=== PATIENT | female | born 1990 | race Caucasian/White ===

== ENCOUNTER 2018-11-06 13:06 | Inpatient (IN) | payer MEDICAID ==
[2018-11-06] MEDS ORDERED: Citric Acid/Sodium Citrate Solution 30 ML Cup PO ONE (13:34)
[2018-11-06] MEDS ORDERED: Sodium Chloride 0.9% 10 ML Syringe FLUSH PRN (13:34)
[2018-11-06] MEDS ORDERED: Nalbuphine 20 MG/ML 1 ML Syringe IVPUSH PRN (13:34)
[2018-11-06] MEDS ORDERED: Metoclopramide 10 MG/2 ML SDV IVPUSH ONE (13:34)
[2018-11-06] MEDS ORDERED: Metoclopramide 10 MG/2 ML SDV ONE (13:35)
[2018-11-06] MEDS ORDERED: Lactated Ringers 1,000 ML ONE (13:35)
[2018-11-06] MEDS ORDERED: Citric Acid/Sodium Citrate Solution 30 ML Cup ONE (13:36)
[2018-11-06] MEDS ORDERED: Lactated Ringers 1,000 ML IV SCH (13:45)
[2018-11-06] MEDS ORDERED: Bupivacaine 0.5% 30 ML SDV ONE (13:57)
[2018-11-06] MEDS ORDERED: ceFAZolin 1 GM Vial ONE (14:00)
[2018-11-06] MEDS ORDERED: Succinylcholine/Normal Saline 100 MG/5 ML Syringe ONE (14:00)
[2018-11-06] MEDS ORDERED: Oxytocin 10 Units/1 ML SDV ONE (14:00)
[2018-11-06] MEDS ORDERED: Ketorolac 30 MG/ML SDV ONE (14:00)
[2018-11-06] MEDS ORDERED: Propofol 200 MG/20 ML SDV ONE (14:00)
[2018-11-06] MEDS ORDERED: fentaNYL 100 MCG/2 ML SDV ONE (14:00)
[2018-11-06] MEDS: fentaNYL 100 MCG/2 ML SDV IVPUSH ONE ×2 (14:53→15:20)
--- NOTE | 2018-11-06 15:10 | PCM.OPNOTE ---
- General Post-Op/Procedure Note Date of Surgery/Procedure: 11/06/18 Operative Procedure(s): primary section Findings: Viable male, weight and apgars pending Pre Op Diagnosis: Abruption, 26w2 Post-Op Diagnosis: Same Anesthesia Technique: General ET Tube Primary Surgeon: Jasmine Fallon Anesthesia Provider: Wilfredo Mike Athletics Director: Radha Butterfield Reason Athletics Director Was Necessary: stat, emergency procedure, speed of procedure needed Fluid Replacement, Intraop: 1,400 Output, Urine Amount: 25 EBL in mLs: 500 Complications: abruption Condition: Good Free Text/Narrative:: The patient was taken to the operating room where general was initiated. The patient was prepped and draped in the usual sterile fashion in the dorsal supine position with a leftward tilt. A Pfannenstiel skin incision was made with the scalpel and carried through to the underlying layer of fascia. Fascia, rectus and peritoneum entered bluntly this incision was extended superiorly and inferiorly with good visualization of the bladder. The bladder blade was inserted. The vesicouterine peritoneum was identified and entered sharply using Metzenbaum scissors. This incision was extended laterally and the bladder flap was created digitally. The bladder blade was reinserted. The lower uterine segment was incised in a transverse fashion using the scalpel and with digital traction. Copious blood and clot noted upon entry to uterus. The was delivered breech. . The cord was clamped and cut. The was subsequently handed to the awaiting harpoon engagement planning operator whose presence had been requested.. The placenta was delivered spontaneously intact with a three-vessel cord noted. The uterus was exteriorized and cleared of all clots and debris. The uterine incision was repaired in 2 layers using 0 monocryl. Additional figure of 8 sutures utilized. Hemostasis was visualized. Hemostasis was visualized bilaterally. The uterus was returned to the abdomen. The uterine incision was reexamined and it was noted to be hemostatic. The pelvis was copiously irrigated. The fascia was closed with 1 PDS suture, and the skin was closed with 3-0 monocryl. Sponge, lap, and instrument counts were correct x2. The patient was stable at the completion of the procedure and was subsequently transferred to the recovery room in stable condition.
--- NOTE | 2018-11-06 15:16 | PCM.HP ---
H&P History of Present Illness - General Date of Service: 11/06/18 Admit Problem/Dx: Admission Diagnosis/Problem Admission Diagnosis/Problem Bleeding Source of Information: Patient, EMS, EMS Notes Reviewed, Police History Limitations: Reports: Altered Mental Status - History of Present Illness Initial Comments - Free Text/Narative: 28 year old presents via ambulance with police escort after police in her home today for routine probation search of the home and the patient began having copious vaginal bleeding. Initially admitted to recent methamphetamine use but then stated only used marijuana and "maybe it was laced with meth" 26w2d with care with myself complicated by history of delivery. - Related Data Allergies/Adverse Reactions: Allergies Allergy/AdvReac Type Severity Reaction Status Date / Time antibiotic. Allergy Hives Uncoded 02/04/16 00:13 Home Medications: Home Meds Sertraline [Zoloft] 1 tab PO DAILY 06/22/16 [History] Past Medical History - Past Health History Medical/Surgical History: Denies Medical/Surgical History Other HEENT History: Wears contacts. 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) - Past Surgical History Female Surgical History: Reports: Other (See Below) Social & Family History - Family History Family Medical History: Noncontributory H&P Review of Systems - Review of Systems: Review Of Systems: See Below General: Reports: No Symptoms HEENT: Reports: No Symptoms Pulmonary: Reports: No Symptoms Cardiovascular: Reports: No Symptoms Gastrointestinal: Reports: No Symptoms Genitourinary: Reports: Other (heavy vaginal bleeding) Musculoskeletal: Reports: No Symptoms Skin: Reports: No Symptoms Psychiatric: Reports: No Symptoms Neurological: Reports: No Symptoms Hematologic/Lymphatic: Reports: No Symptoms Immunologic: Reports: No Symptoms Exam - Exam Exam: See Below - Vital Signs Weight: 75.296 kg - Exam General: Alert, Other (agitated) HEENT: PERRLA, Hearing Intact, Mucosa Moist & [place], Nares Patent, Normal Nasal Septum, Posterior Pharynx Clear, Conjunctiva Clear, EOMI, EACs Clear, TMs Clear Lungs: Clear to Auscultation, Normal Respiratory Effort Cardiovascular: Regular Rate, Regular Rhythm GI/Abdominal Exam: Normal Bowel Sounds, Soft, Non-Tender, No Organomegaly, No Distention, No Abnormal Bruit, No Mass, Pelvis Stable (Female) Exam: Normal External Exam, Vaginal Bleeding, Other (speculum exam with copious vaginal bleeding) Rectal (Female) Exam: Normal Exam Back Exam: Normal Inspection, Full Range of Motion, NT Extremities: Normal Inspection, Normal Range of Motion, No Pedal Edema Skin: Warm, Dry, Intact Neurological: Cranial Nerves Intact, Reflexes Equal Bilateral Neuro Extensive - Mental Status: Alert, Oriented x3 Neuro Extensive - Motor, Sensory, Reflexes: CN II-XII Intact, Normal Reflexes Psychiatric: Alert, Normal Affect, Normal Mood - Patient Data Lab Results Last 24 hrs: Laboratory Results - last 24 hr 11/06/18 11/06/18 11/06/18 Range/Units 13:25 13:25 13:25 WBC 12.54 H (3.98-10.04) K/mm3 RBC 4.12 (3.98-5.22) M/mm3 Hgb 12.0 (11.2-15.7) gm/L Hct 36.5 (34.1-44.9) % MCV 88.6 (79.4-94.8) fl MCH 29.1 (25.6-32.2) pg MCHC 32.9 (32.2-35.5) g/dl RDW Std Deviation 42.6 (36.4-46.3) fL Plt Count 336 (182-369) K/mm3 MPV 10.5 (9.4-12.3) fl Neut % (Auto) 70.9 (34.0-71.1) % Lymph % (Auto) 19.1 L (19.3-51.7) % Sherman % (Auto) 8.5 (4.7-12.5) % Eos % (Auto) 0.6 L (0.7-5.8) Baso % (Auto) 0.3 (0.1-1.2) % Neut # (Auto) 8.90 H (1.56-6.13) K/mm3 Lymph # (Auto) 2.40 (1.18-3.74) K/mm3 Sherman # (Auto) 1.06 H (0.24-0.36) K/mm3 Eos # (Auto) 0.07 (0.04-0.36) K/mm3 Baso # (Auto) 0.04 (0.01-0.08) K/mm3 PT 9.6 (9.5-12.1) SECONDS INR < 0.93 APTT 24 (24-31) SECONDS Fibrinogen 340 (187-446) mg/dL Sodium 139 (136-145) mEq/L Potassium 3.7 (3.5-5.1) mEq/L Chloride 105 (98-107) mEq/L Carbon Dioxide 24 (21-32) mEq/L Anion Gap 13.7 (5-15) BUN 10 (7-18) mg/dL Creatinine 0.7 (0.55-1.02) mg/dL Est Cr Clr Drug Dosing 94.63 mL/min Estimated GFR (MDRD) > 60 (>60) mL/min BUN/Creatinine Ratio 14.3 (14-18) Glucose 78 (74-106) mg/dL Calcium 8.5 (8.5-10.1) mg/dL Total Bilirubin 0.2 (0.2-1.0) mg/dL AST 21 (15-37) U/L ALT 19 (14-59) U/L Alkaline Phosphatase 75 (46-116) U/L Total Protein 6.1 L (6.4-8.2) g/dl Albumin 2.3 L (3.4-5.0) g/dl Globulin 3.8 gm/dL Albumin/Globulin Ratio 0.6 L (1-2) Urine Opiates Screen (SHCWVK=064) Ur Buprenorphine Scrn (CUTOFF=10) Ur Oxycodone Screen (OLR2JV=325) Urine Methadone Screen (IKBQUF=001) Ur Propoxyphene Screen (QLJUSY=583) Ur Barbiturates Screen (RZZYOB=037) Ur Tricyclics Screen (IUEGOI=003) Ur Phencyclidine Scrn (CUTOFF=25) Ur Amphetamine Screen (EVESPY=089) U Methamphetamines Scrn (SPVBET=364) U Benzodiazepines Scrn (XQYIGJ=072) U Cocaine Metab Screen (HSQQAJ=995) U Marijuana (THC) Screen (CUTOFF=50) Blood Type Gel Antibody Screen 11/06/18 11/06/18 Range/Units 13:25 13:37 WBC (3.98-10.04) K/mm3 RBC (3.98-5.22) M/mm3 Hgb (11.2-15.7) gm/L Hct (34.1-44.9) % MCV (79.4-94.8) fl MCH (25.6-32.2) pg MCHC (32.2-35.5) g/dl RDW Std Deviation (36.4-46.3) fL Plt Count (182-369) K/mm3 MPV (9.4-12.3) fl Neut % (Auto) (34.0-71.1) % Lymph % (Auto) (19.3-51.7) % Sherman % (Auto) (4.7-12.5) % Eos % (Auto) (0.7-5.8) Baso % (Auto) (0.1-1.2) % Neut # (Auto) (1.56-6.13) K/mm3 Lymph # (Auto) (1.18-3.74) K/mm3 Sherman # (Auto) (0.24-0.36) K/mm3 Eos # (Auto) (0.04-0.36) K/mm3 Baso # (Auto) (0.01-0.08) K/mm3 PT (9.5-12.1) SECONDS INR APTT (24-31) SECONDS Fibrinogen (187-446) mg/dL Sodium (136-145) mEq/L Potassium (3.5-5.1) mEq/L Chloride (98-107) mEq/L Carbon Dioxide (21-32) mEq/L Anion Gap (5-15) BUN (7-18) mg/dL Creatinine (0.55-1.02) mg/dL Est Cr Clr Drug Dosing mL/min Estimated GFR (MDRD) (>60) mL/min BUN/Creatinine Ratio (14-18) Glucose (74-106) mg/dL Calcium (8.5-10.1) mg/dL Total Bilirubin (0.2-1.0) mg/dL AST (15-37) U/L ALT (14-59) U/L Alkaline Phosphatase (46-116) U/L Total Protein (6.4-8.2) g/dl Albumin (3.4-5.0) g/dl Globulin gm/dL Albumin/Globulin Ratio (1-2) Urine Opiates Screen Negative (LFBLRR=380) Ur Buprenorphine Scrn Negative (CUTOFF=10) Ur Oxycodone Screen Negative (WGH7YJ=867) Urine Methadone Screen Negative (QKKFKD=249) Ur Propoxyphene Screen Negative (MIHTLM=824) Ur Barbiturates Screen Negative (BOQDWB=113) Ur Tricyclics Screen Negative (YWLFNB=321) Ur Phencyclidine Scrn Negative (CUTOFF=25) Ur Amphetamine Screen Presumptive positive H (RWNUTX=916) U Methamphetamines Scrn Presumptive positive H (DYVAWV=126) U Benzodiazepines Scrn Negative (MLABSQ=636) U Cocaine Metab Screen Negative (BMOUWL=338) U Marijuana (THC) Screen Presumptive positive H (CUTOFF=50) Blood Type O POSITIVE Gel Antibody Screen Negative Result Diagrams: 11/06/18 13:25 11/06/18 13:25 Problem List Initiated/Reviewed/Updated: Yes Orders Last 24hrs: Active Orders 24 hr Category Date Time Status Patient Status [ADT] Routine ADT 11/06/18 13:34 Active Communication Order [RC] ROUTINE Care 11/06/18 13:34 Active Heart Tones [RC] PER UNIT ROUTINE Care 11/06/18 13:34 Active Non Stress Test [RC] PER UNIT ROUTINE Care 11/06/18 13:34 Active Peripheral IV Care [RC] . DIRECTED Care 11/06/18 13:35 Active Procedure Site Prep Instruct [RC] ASDIRECTED Care 11/06/18 13:34 Active Verify Patient Consent Obtain [RC] PER UNIT ROUTINE Care 11/06/18 13:34 Active Vital Signs [RC] PFP Care 11/06/18 13:34 Active RAPID PLASMA REAGIN,RPR [CHEM] Routine Lab 11/06/18 13:25 Received Lactated Ringers [Ringers, Lactated] 1,000 ml Med 11/06/18 13:45 Active IV ASDIRECTED Nalbuphine [Nubain] Med 11/06/18 13:34 Active 10 mg IVPUSH Q2H PRN Sodium Chloride 0.9% [Saline Flush] Med 11/06/18 13:34 Active 10 ml FLUSH ASDIRECTED PRN Peripheral IV Insertion Adult [OM.PC] Routine Oth 11/06/18 13:34 Ordered Schedule Procedure [COMM] Per Unit Routine Oth 11/06/18 13:34 Ordered Resuscitation Status Routine Resus Stat 11/06/18 13:34 Ordered Medication Orders Lactated Ringer's (Ringers, Lactated) 1,000 mls @ 125 mls/hr IV ASDIRECTED HANNY Nalbuphine HCl (Nubain) 10 mg IVPUSH Q2H PRN PRN Reason: pain Sodium Chloride (Saline Flush) 10 ml FLUSH ASDIRECTED PRN PRN Reason: Keep Vein Open Assessment/Plan Comment:: Placental abruption in setting of likely recent methamphetamine use. Proceed with stat Note done after due to emergent nature.
[2018-11-06] MEDS ORDERED: diphenhydrAMINE 50 MG/ML SDV IVPUSH PRN (17:40)
[2018-11-06] MEDS ORDERED: Dextrose 5%-Lactated Ringers 1,000 ML IV SCH (17:40)
[2018-11-06] MEDS ORDERED: Naloxone 0.4 MG/ML SDV IVPUSH PRN (17:40)
[2018-11-06] MEDS ORDERED: Lanolin 100% Cream 7 GM Tube TOP PRN (17:40)
[2018-11-06] MEDS ORDERED: ePHEDrine 50 MG/ML SDV IVPUSH PRN (17:40)
[2018-11-06] MEDS ORDERED: Docusate Sodium 100 MG Cap PO PRN (17:40)
[2018-11-06] MEDS: Ketorolac 30 MG/ML SDV IVPUSH SCH ×2 (18:41→23:48)
[2018-11-07] MEDS ORDERED: Sodium Chloride 0.45% 500 ML IV ONE (01:30)
[2018-11-07] MEDS ORDERED: Sodium Chloride 0.9% 500 ML IV ONE (01:45)
[2018-11-07] MEDS ORDERED: Sodium Chloride 0.45% 1,000 ML IV SCH (02:30)
[2018-11-07] MEDS ORDERED: Sodium Chloride 0.9% 1,000 ML IV SCH (02:45)
[2018-11-07] MEDS: Ketorolac 30 MG/ML SDV IVPUSH SCH (06:14)
--- NOTE | 2018-11-07 07:46 | PCM48HPAN ---
Post Anesthesia Note - EVALUATION WITHIN 48HRS OF ANESTHETIC Vital Signs in Normal Range: Yes Patient Participated in Evaluation: Yes Respiratory Function Stable: Yes Airway Patent: Yes Cardiovascular Function Stable: Yes Hydration Status Stable: Yes Pain Control Satisfactory: Yes Nausea and Vomiting Control Satisfactory: Yes Mental Status Recovered: Yes (resting in bed- no complaints) Pulse Rate: 80 Resp Rate: 14 Temperature: 98.2 F Blood Pressure: 137/88
[2018-11-07] MEDS: Acetaminophen/HYDROcodone 325-5 MG Tab PO PRN ×3 (10:08→22:09)
--- NOTE | 2018-11-07 10:40 | PCM.PNPP ---
- General Info Date of Service: 11/07/18 Functional Status: Reports: Pain Controlled - Review of Systems General: Reports: No Symptoms HEENT: Reports: No Symptoms Pulmonary: Reports: No Symptoms Cardiovascular: Reports: No Symptoms Gastrointestinal: Reports: No Symptoms Genitourinary: Reports: No Symptoms Musculoskeletal: Reports: No Symptoms Skin: Reports: No Symptoms Neurological: Reports: No Symptoms Psychiatric: Reports: No Symptoms - General Info Date of Service: 11/07/18 - Patient Data Vital Signs - Most Recent: Last Vital Signs Temp 36.6 C 11/07/18 09:18 Pulse 78 11/07/18 09:18 Resp 14 11/07/18 09:18 BP 123/75 11/07/18 09:18 Pulse Ox 94 L 11/07/18 09:18 Weight - Most Recent: 86.183 kg I&O - Last 24 Hours: Intake & Output 11/06/18 11/07/18 11/07/18 22:59 06:59 14:59 Intake Total 1550 2000 Output Total 75 1200 Balance 1475 800 Lab Results - Last 24 Hours: Laboratory Results - last 24 hr 11/06/18 11/06/18 11/06/18 Range/Units 13:25 13:25 13:25 WBC 12.54 H (3.98-10.04) K/mm3 RBC 4.12 (3.98-5.22) M/mm3 Hgb 12.0 (11.2-15.7) gm/L Hct 36.5 (34.1-44.9) % MCV 88.6 (79.4-94.8) fl MCH 29.1 (25.6-32.2) pg MCHC 32.9 (32.2-35.5) g/dl RDW Std Deviation 42.6 (36.4-46.3) fL Plt Count 336 (182-369) K/mm3 MPV 10.5 (9.4-12.3) fl Neut % (Auto) 70.9 (34.0-71.1) % Lymph % (Auto) 19.1 L (19.3-51.7) % [place] % (Auto) 8.5 (4.7-12.5) % Eos % (Auto) 0.6 L (0.7-5.8) Baso % (Auto) 0.3 (0.1-1.2) % Neut # (Auto) 8.90 H (1.56-6.13) K/mm3 Lymph # (Auto) 2.40 (1.18-3.74) K/mm3 [place] # (Auto) 1.06 H (0.24-0.36) K/mm3 Eos # (Auto) 0.07 (0.04-0.36) K/mm3 Baso # (Auto) 0.04 (0.01-0.08) K/mm3 Manual Slide Review PT 9.6 (9.5-12.1) SECONDS INR < 0.93 APTT 24 (24-31) SECONDS Fibrinogen 340 (187-446) mg/dL Sodium 139 (136-145) mEq/L Potassium 3.7 (3.5-5.1) mEq/L Chloride 105 (98-107) mEq/L Carbon Dioxide 24 (21-32) mEq/L Anion Gap 13.7 (5-15) BUN 10 (7-18) mg/dL Creatinine 0.7 (0.55-1.02) mg/dL Est Cr Clr Drug Dosing 94.63 mL/min Estimated GFR (MDRD) > 60 (>60) mL/min BUN/Creatinine Ratio 14.3 (14-18) Glucose 78 (74-106) mg/dL POC Glucose (70-105) mg/dL Calcium 8.5 (8.5-10.1) mg/dL Total Bilirubin 0.2 (0.2-1.0) mg/dL AST 21 (15-37) U/L ALT 19 (14-59) U/L Alkaline Phosphatase 75 (46-116) U/L Total Protein 6.1 L (6.4-8.2) g/dl Albumin 2.3 L (3.4-5.0) g/dl Globulin 3.8 gm/dL Albumin/Globulin Ratio 0.6 L (1-2) Urine Opiates Screen (GQAIIT=554) Ur Buprenorphine Scrn (CUTOFF=10) Ur Oxycodone Screen (AQY2AU=412) Urine Methadone Screen (RBIRJL=999) Ur Propoxyphene Screen (TAMYFP=178) Ur Barbiturates Screen (ZREPZN=797) Ur Tricyclics Screen (IXVURZ=095) Ur Phencyclidine Scrn (CUTOFF=25) Ur Amphetamine Screen (MUKGFF=579) U Methamphetamines Scrn (CUOKSL=089) U Benzodiazepines Scrn (IFGRCY=454) U Cocaine Metab Screen (OVCEGB=308) U Marijuana (THC) Screen (CUTOFF=50) Blood Type Gel Antibody Screen 11/06/18 11/06/18 11/06/18 Range/Units 13:25 13:37 15:33 WBC (3.98-10.04) K/mm3 RBC (3.98-5.22) M/mm3 Hgb (11.2-15.7) gm/L Hct (34.1-44.9) % MCV (79.4-94.8) fl MCH (25.6-32.2) pg MCHC (32.2-35.5) g/dl RDW Std Deviation (36.4-46.3) fL Plt Count (182-369) K/mm3 MPV (9.4-12.3) fl Neut % (Auto) (34.0-71.1) % Lymph % (Auto) (19.3-51.7) % [place] % (Auto) (4.7-12.5) % Eos % (Auto) (0.7-5.8) Baso % (Auto) (0.1-1.2) % Neut # (Auto) (1.56-6.13) K/mm3 Lymph # (Auto) (1.18-3.74) K/mm3 [place] # (Auto) (0.24-0.36) K/mm3 Eos # (Auto) (0.04-0.36) K/mm3 Baso # (Auto) (0.01-0.08) K/mm3 Manual Slide Review PT (9.5-12.1) SECONDS INR APTT (24-31) SECONDS Fibrinogen (187-446) mg/dL Sodium (136-145) mEq/L Potassium (3.5-5.1) mEq/L Chloride (98-107) mEq/L Carbon Dioxide (21-32) mEq/L Anion Gap (5-15) BUN (7-18) mg/dL Creatinine (0.55-1.02) mg/dL Est Cr Clr Drug Dosing mL/min Estimated GFR (MDRD) (>60) mL/min BUN/Creatinine Ratio (14-18) Glucose (74-106) mg/dL POC Glucose 282 H (70-105) mg/dL Calcium (8.5-10.1) mg/dL Total Bilirubin (0.2-1.0) mg/dL AST (15-37) U/L ALT (14-59) U/L Alkaline Phosphatase (46-116) U/L Total Protein (6.4-8.2) g/dl Albumin (3.4-5.0) g/dl Globulin gm/dL Albumin/Globulin Ratio (1-2) Urine Opiates Screen Negative (PAYRBX=009) Ur Buprenorphine Scrn Negative (CUTOFF=10) Ur Oxycodone Screen Negative (NIZ6QZ=596) Urine Methadone Screen Negative (NUIRCA=409) Ur Propoxyphene Screen Negative (CLRWVS=903) Ur Barbiturates Screen Negative (GMVUUZ=295) Ur Tricyclics Screen Negative (AZCMCM=751) Ur Phencyclidine Scrn Negative (CUTOFF=25) Ur Amphetamine Screen Presumptive positive H (YKQRGV=759) U Methamphetamines Scrn Presumptive positive H (HDNQBS=116) U Benzodiazepines Scrn Negative (SMLWCY=420) U Cocaine Metab Screen Negative (ICIWTY=741) U Marijuana (THC) Screen Presumptive positive H (CUTOFF=50) Blood Type O POSITIVE Gel Antibody Screen Negative 11/07/18 Range/Units 06:00 WBC 11.68 H (3.98-10.04) K/mm3 RBC 3.26 L (3.98-5.22) M/mm3 Hgb 9.4 L D (11.2-15.7) gm/L Hct 29.3 L (34.1-44.9) % MCV 89.9 (79.4-94.8) fl MCH 28.8 (25.6-32.2) pg MCHC 32.1 L (32.2-35.5) g/dl RDW Std Deviation 42.8 (36.4-46.3) fL Plt Count 262 (182-369) K/mm3 MPV 10.2 (9.4-12.3) fl Neut % (Auto) 65.8 (34.0-71.1) % Lymph % (Auto) 18.9 L (19.3-51.7) % [place] % (Auto) 13.1 H (4.7-12.5) % Eos % (Auto) 1.6 (0.7-5.8) Baso % (Auto) 0.2 (0.1-1.2) % Neut # (Auto) 7.68 H (1.56-6.13) K/mm3 Lymph # (Auto) 2.21 (1.18-3.74) K/mm3 [place] # (Auto) 1.53 H (0.24-0.36) K/mm3 Eos # (Auto) 0.19 (0.04-0.36) K/mm3 Baso # (Auto) 0.02 (0.01-0.08) K/mm3 Manual Slide Review Abnormal smear PT (9.5-12.1) SECONDS INR APTT (24-31) SECONDS Fibrinogen (187-446) mg/dL Sodium (136-145) mEq/L Potassium (3.5-5.1) mEq/L Chloride (98-107) mEq/L Carbon Dioxide (21-32) mEq/L Anion Gap (5-15) BUN (7-18) mg/dL Creatinine (0.55-1.02) mg/dL Est Cr Clr Drug Dosing mL/min Estimated GFR (MDRD) (>60) mL/min BUN/Creatinine Ratio (14-18) Glucose (74-106) mg/dL POC Glucose (70-105) mg/dL Calcium (8.5-10.1) mg/dL Total Bilirubin (0.2-1.0) mg/dL AST (15-37) U/L ALT (14-59) U/L Alkaline Phosphatase (46-116) U/L Total Protein (6.4-8.2) g/dl Albumin (3.4-5.0) g/dl Globulin gm/dL Albumin/Globulin Ratio (1-2) Urine Opiates Screen (GFOAMX=244) Ur Buprenorphine Scrn (CUTOFF=10) Ur Oxycodone Screen (NRG0PP=102) Urine Methadone Screen (OTKXLY=275) Ur Propoxyphene Screen (IBVWSD=332) Ur Barbiturates Screen (LHZMUA=366) Ur Tricyclics Screen (OANUJN=120) Ur Phencyclidine Scrn (CUTOFF=25) Ur Amphetamine Screen (IELNTJ=694) U Methamphetamines Scrn (NMVZQV=577) U Benzodiazepines Scrn (WNSCIB=462) U Cocaine Metab Screen (UACSCA=941) U Marijuana (THC) Screen (CUTOFF=50) Blood Type Gel Antibody Screen Med Orders - Current: Current Medications Hydrocodone Bitart/Acetaminophen (Malcom 325-5 Mg) 2 tab PO Q4H PRN PRN Reason: Pain Last Admin: 11/07/18 10:08 Dose: 2 tab Diphenhydramine HCl (Benadryl) 25 mg IVPUSH Q6H PRN PRN Reason: Itching or Nausea Docusate Sodium (Colace) 100 mg PO Q12H PRN PRN Reason: Constipation Emollient Ointment (Lansinoh Hpa) 0 gm TOP ASDIRECTED PRN PRN Reason: Sore Nipples Ephedrine Sulfate (Ephedrine Sulfate) 5 mg IVPUSH SEECOMMENT PRN PRN Reason: Other Sodium Chloride (Normal Saline) 1,000 mls @ 125 mls/hr IV ASDIRECTED HANNY Ibuprofen (Motrin) 600 mg PO Q6H PRN PRN Reason: mild pain or fever Naloxone HCl (Narcan) 0.1 mg IVPUSH SEECOMMENT PRN PRN Reason: Respiratory Depression Discontinued Medications Bupivacaine HCl (Marcaine 0.5%) Confirm Administered Dose 30 ml .ROUTE .STK-MED ONE Stop: 11/06/18 13:58 Last Admin: 11/06/18 13:48 Dose: 20 ml Cefazolin Sodium (Ancef) 2 gm .ROUTE .STK-MED ONE Stop: 11/06/18 14:01 Citric Acid/Sodium Citrate (Bicitra Solution) Confirm Administered Dose 30 ml .ROUTE .STK-MED ONE Stop: 11/06/18 13:37 Last Admin: 11/06/18 13:40 Dose: 30 ml Citric Acid/Sodium Citrate (Bicitra Solution) 30 ml PO ONETIME ONE Stop: 11/06/18 13:35 Fentanyl (Sublimaze) 50 mcg IVPUSH ONETIME ONE Stop: 11/06/18 15:26 Last Admin: 11/06/18 15:20 Dose: 50 mcg Fentanyl (Sublimaze) 200 mcg .ROUTE .STK-MED ONE Stop: 11/06/18 14:01 Lactated Ringer's (Ringers, Lactated) Confirm Administered Dose 1,000 mls @ as directed .ROUTE .STK-MED ONE Stop: 11/06/18 13:36 Lactated Ringer's (Ringers, Lactated) 1,000 mls @ 125 mls/hr IV ASDIRECTED [facility] Dextrose/Lactated Ringer's (Dextrose 5%-Lactated Ringers) 1,000 mls @ 125 mls/ hr IV ASDIRECTED HANNY Stop: 11/07/18 01:39 Last Admin: 11/06/18 20:42 Dose: 125 mls/hr Sodium Chloride (Normal Saline) 500 mls @ 500 mls/hr IV ONETIME ONE Stop: 11/07/18 02:44 Last Infusion: 11/07/18 03:17 Dose: Infused Ketorolac Tromethamine (Toradol) 30 mg IVPUSH Q6H [facility] Stop: 11/07/18 05:41 Last Admin: 11/07/18 06:14 Dose: 30 mg Ketorolac Tromethamine (Toradol) 30 mg .ROUTE .STK-MED ONE Stop: 11/06/18 14:01 Lactated Ringer's (Ringers, Lactated) 1,000 ml .ROUTE .STK-MED ONE Stop: 11/06/18 14:01 Metoclopramide HCl (Reglan) Confirm Administered Dose 10 mg .ROUTE .STK-MED ONE Stop: 11/06/18 13:36 Last Admin: 11/06/18 13:45 Dose: 10 mg Metoclopramide HCl (Reglan) 10 mg IVPUSH ONETIME ONE Stop: 11/06/18 13:35 Nalbuphine HCl (Nubain) 10 mg IVPUSH Q2H PRN PRN Reason: pain Oxytocin (Pitocin) 10 unit .ROUTE .STK-MED ONE Stop: 11/06/18 14:01 Propofol (Diprivan 20 Ml) 200 mg .ROUTE .STK-MED ONE Stop: 11/06/18 14:01 Sodium Chloride (Saline Flush) 10 ml FLUSH ASDIRECTED PRN PRN Reason: Keep Vein Open Succinylcholine Chloride (Succinylcholine In Ns Pf) 100 mg .ROUTE .STK-MED ONE Stop: 11/06/18 14:01 - Interaction Disposition, : IN UMM Support Person: Significant Other - Recovery Exam Fundal Tone: Firm Fundal Level: 1 Fingerbreadths Below Umbilicus Fundal Placement: Midline Lochia Amount: Small Lochia Color: Rubra/Red Perineum Description: Intact, Minimal Bruising/Swelling Episiotomy/Laceration: None Bladder Status: Indwelling Catheter in Place - Exam General: Alert, Oriented HEENT: Pupils Equal Neck: Supple Lungs: Clear to Auscultation, Normal Respiratory Effort Cardiovascular: Regular Rate, Regular Rhythm GI/Abdominal Exam: Normal Bowel Sounds, Soft, Non-Tender, No Organomegaly, No Distention, No Abnormal Bruit, No Mass, Pelvis Stable Skin: Warm, Dry, Intact Wound/Incisions: Healing Well Neurological: No New Focal Deficit Psy/Mental Status: Alert, Normal Affect, Normal Mood - Problem List Review Problem List Initiated/Reviewed/Updated: Yes - My Orders Last 24 Hours: My Active Orders 11/06/18 13:25 RAPID PLASMA REAGIN,RPR [CHEM] Routine 11/06/18 13:34 Communication Order [RC] ROUTINE Heart Tones [RC] PER UNIT ROUTINE Non Stress Test [RC] PER UNIT ROUTINE Procedure Site Prep Instruct [RC] ASDIRECTED Verify Patient Consent Obtain [RC] PER UNIT ROUTINE Vital Signs [RC] PFP Resuscitation Status Routine 11/06/18 13:35 Peripheral IV Care [RC] . DIRECTED 11/06/18 17:40 Communication Order [RC] PER UNIT ROUTINE Communication Order [RC] PER UNIT ROUTINE Notify Provider Intake and Out [RC] ASDIRECTED Vital Signs [RC] Q4HR Consult to Case Management/Test Director [CONS] Routine Docusate Sodium [Colace] 100 mg PO Q12H PRN Lanolin [Lansinoh HPA] See Dose Instructions TOP ASDIRECTED PRN Naloxone [Narcan] 0.1 mg IVPUSH SEECOMMENT PRN diphenhydrAMINE [Benadryl] 25 mg IVPUSH Q6H PRN ePHEDrine [ePHEDrine sulfate] 5 mg IVPUSH SEECOMMENT PRN Assess Lochia [WOMSER] Per Unit Routine Assess Uterine Involution [WOMSER] Per Unit Routine Medication Administration Instruction [OM.PC] Routine 11/06/18 Dinner Regular Diet [DIET] 11/07/18 02:45 Sodium Chloride 0.9% [Normal Saline] 1,000 ml IV ASDIRECTED 11/07/18 09:48 Acetaminophen/HYDROcodone [Malcom 325-5 MG] 2 tab PO Q4H PRN 11/07/18 11:45 Ibuprofen [Motrin] 600 mg PO Q6H PRN 11/07/18 15:23 Urinary Catheter Removal [RC] Per Unit Routine - Assessment Assessment:: 28 year old s/p at 26 weeks for abruption. Pain controlled.
[2018-11-07] MEDS ORDERED: Ibuprofen 600 MG Tab PO PRN (12:00)
[2018-11-07] MEDS: Ibuprofen 600 MG Tab PO PRN ×2 (12:54→20:34)
[2018-11-08] MEDS: Acetaminophen/HYDROcodone 325-5 MG Tab PO PRN ×2 (04:33→10:49)
--- NOTE | 2018-11-08 09:33 | PCM.PNPP ---
- General Info Date of Service: 11/08/18 Functional Status: Reports: Pain Controlled, Tolerating Diet, Ambulating, Urinating - Review of Systems General: Reports: No Symptoms Pulmonary: Reports: No Symptoms Cardiovascular: Reports: No Symptoms Gastrointestinal: Reports: Abdominal Pain (managed with medications) Genitourinary: Reports: No Symptoms Musculoskeletal: Reports: No Symptoms - Patient Data Vital Signs - Most Recent: Last Vital Signs Temp 37.0 C 11/07/18 22:14 Pulse 85 11/07/18 22:14 Resp 14 11/07/18 22:14 BP 123/88 11/07/18 22:14 Pulse Ox 100 11/07/18 22:14 Weight - Most Recent: 86.183 kg Lab Results - Last 24 Hours: Laboratory Results - last 24 hr 11/06/18 Range/Units 13:25 RPR Non-reactive (NONREACTIVE) Med Orders - Current: Current Medications Hydrocodone Bitart/Acetaminophen ([place] 325-5 Mg) 2 tab PO Q4H PRN PRN Reason: Pain Last Admin: 11/08/18 04:33 Dose: 1 tab Hydrocodone Bitart/Acetaminophen ([place] 325-5 Mg) 1 tab PO Q4H PRN PRN Reason: Pain Last Admin: 11/07/18 22:09 Dose: 1 tab Diphenhydramine HCl (Benadryl) 25 mg IVPUSH Q6H PRN PRN Reason: Itching or Nausea Docusate Sodium (Colace) 100 mg PO Q12H PRN PRN Reason: Constipation Emollient Ointment (Lansinoh Hpa) 0 gm TOP ASDIRECTED PRN PRN Reason: Sore Nipples Ephedrine Sulfate (Ephedrine Sulfate) 5 mg IVPUSH SEECOMMENT PRN PRN Reason: Other Sodium Chloride (Normal Saline) 1,000 mls @ 125 mls/hr IV ASDIRECTED HANNY Ibuprofen (Motrin) 600 mg PO Q6H PRN PRN Reason: mild pain or fever Last Admin: 11/07/18 20:34 Dose: 600 mg Naloxone HCl (Narcan) 0.1 mg IVPUSH SEECOMMENT PRN PRN Reason: Respiratory Depression Discontinued Medications Bupivacaine HCl (Marcaine 0.5%) Confirm Administered Dose 30 ml .ROUTE .STK-MED ONE Stop: 11/06/18 13:58 Last Admin: 11/06/18 13:48 Dose: 20 ml Cefazolin Sodium (Ancef) 2 gm .ROUTE .STK-MED ONE Stop: 11/06/18 14:01 Citric Acid/Sodium Citrate (Bicitra Solution) Confirm Administered Dose 30 ml .ROUTE .[facility] ONE Stop: 11/06/18 13:37 Last Admin: 11/06/18 13:40 Dose: 30 ml Citric Acid/Sodium Citrate (Bicitra Solution) 30 ml PO ONETIME ONE Stop: 11/06/18 13:35 Last Admin: 11/07/18 16:27 Dose: Not Given Fentanyl (Sublimaze) 50 mcg IVPUSH ONETIME ONE Stop: 11/06/18 15:26 Last Admin: 11/06/18 15:20 Dose: 50 mcg Fentanyl (Sublimaze) 200 mcg .ROUTE .[facility] ONE Stop: 11/06/18 14:01 Lactated Ringer's (Ringers, Lactated) Confirm Administered Dose 1,000 mls @ as directed .ROUTE .[facility] ONE Stop: 11/06/18 13:36 Last Admin: 11/07/18 16:27 Dose: Not Given Lactated Ringer's (Ringers, Lactated) 1,000 mls @ 125 mls/hr IV ASDIRECTED [facility] Dextrose/Lactated Ringer's (Dextrose 5%-Lactated Ringers) 1,000 mls @ 125 mls/ hr IV ASDIRECTED [facility] Stop: 11/07/18 01:39 Last Admin: 11/06/18 20:42 Dose: 125 mls/hr Sodium Chloride (Normal Saline) 500 mls @ 500 mls/hr IV ONETIME ONE Stop: 11/07/18 02:44 Last Infusion: 11/07/18 03:17 Dose: Infused Ketorolac Tromethamine (Toradol) 30 mg IVPUSH Q6H [facility] Stop: 11/07/18 05:41 Last Admin: 11/07/18 06:14 Dose: 30 mg Ketorolac Tromethamine (Toradol) 30 mg .ROUTE .STK-MED ONE Stop: 11/06/18 14:01 Lactated Ringer's (Ringers, Lactated) 1,000 ml .ROUTE .[facility] ONE Stop: 11/06/18 14:01 Metoclopramide HCl (Reglan) Confirm Administered Dose 10 mg .ROUTE .STK-MED ONE Stop: 11/06/18 13:36 Last Admin: 11/06/18 13:45 Dose: 10 mg Metoclopramide HCl (Reglan) 10 mg IVPUSH ONETIME ONE Stop: 11/06/18 13:35 Last Admin: 11/07/18 16:26 Dose: Not Given Nalbuphine HCl (Nubain) 10 mg IVPUSH Q2H PRN PRN Reason: pain Oxytocin (Pitocin) 10 unit .ROUTE .STK-MED ONE Stop: 11/06/18 14:01 Propofol (Diprivan 20 Ml) 200 mg .ROUTE .STK-MED ONE Stop: 11/06/18 14:01 Sodium Chloride (Saline Flush) 10 ml FLUSH ASDIRECTED PRN PRN Reason: Keep Vein Open Succinylcholine Chloride (Succinylcholine In Ns Pf) 100 mg .ROUTE .STK-MED ONE Stop: 11/06/18 14:01 - Interaction Infant Disposition, : IN [place] Feeding: Other (see below) (Patient pumping) Support Person: Significant Other - Recovery Exam Fundal Tone: Firm Fundal Level: 1 Fingerbreadths Below Umbilicus Fundal Placement: Midline Lochia Amount: Small Lochia Color: Rubra/Red Perineum Description: Intact, Minimal Bruising/Swelling Episiotomy/Laceration: None Bladder Status: Voiding Urinary Elimination: Voided - Exam General: Alert, Oriented, Cooperative GI/Abdominal Exam: Soft, Non-Tender Extremities: Normal Inspection Skin: Warm, Dry, Intact - Problem List & Annotations (1) 26 weeks gestation of SNOMED Code(s): 91481107 Code(s): Z3A.26 - 26 WEEKS GESTATION OF Status: Acute Current Visit: Yes (2) Placental abruption SNOMED Code(s): 321519974 Code(s): O45.90 - PREMATURE SEPARATION OF PLACENTA, UNSP, UNSP TRIMESTER Status: Acute Current Visit: Yes Qualifiers: Trimester: third trimester Qualified Code(s): O45.93 - Premature separation of placenta, unspecified, third trimester (3) S/P SNOMED Code(s): 950211936, 017084093 Code(s): Z98.891 - HISTORY OF UTERINE SCAR FROM PREVIOUS SURGERY Status: Acute Current Visit: Yes - Problem List Review Problem List Initiated/Reviewed/Updated: Yes - My Orders Last 24 Hours: My Active Orders 11/08/18 09:26 Ready for Discharge [RC] PER UNIT ROUTINE - Assessment Assessment:: 28 year old G3 now P1102 POD#2 from primary at 26 4/7 wks for abruption - Plan Plan:: S/p * Routine cares * Discharge today * manager technical services involved * Patient plans to travel to [place] to visit baby in NICU
--- NOTE | 2018-11-08 09:35 | PCM.DCSUM1 ---
Discharge Summary - Discharge Data Discharge Date: 11/08/18 Discharge Disposition: Home, Self-Care 01 Condition: Good - Discharge Diagnosis/Problem(s) (1) 26 weeks gestation of SNOMED Code(s): 87367716 ICD Code: Z3A.26 - 26 WEEKS GESTATION OF Status: Acute Current Visit: Yes (2) Placental abruption SNOMED Code(s): 117262887 ICD Code: O45.90 - PREMATURE SEPARATION OF PLACENTA, UNSP, UNSP TRIMESTER Status: Acute Current Visit: Yes Qualifiers: Trimester: third trimester Qualified Code(s): O45.93 - Premature separation of placenta, unspecified, third trimester (3) S/P SNOMED Code(s): 493348070, 474256957 ICD Code: Z98.891 - HISTORY OF UTERINE SCAR FROM PREVIOUS SURGERY Status: Acute Current Visit: Yes - Patient Summary/Data Operative Procedure(s) Performed: primary section Complications: None Consults: Consultations 11/06/18 17:40 Consult to Case Management/[employer] [place] [CONS] Routine Recommended Follow-up Testing/Procedures: Follow up in 2 weeks for post op check Hospital Course: 28 y/o presented at 26 4/7 wks with acute/heavy bleeding. Concern for abruption. Patient taken for emergent . See delivery note. she did well and was discharged home on PPD#2. marketing services coordinator was consulted during patient stay. - Patient Instructions Diet: Regular Diet as Tolerated Activity: No Lifting Over 10 Pounds Activity, Other: Pelvic rest for 6 weeks Driving: Do Not Drive (While taking narcotics ) Showering/Bathing: May Shower, No Tub Bathing/Swimming Wound/Incision Care: Keep Operative Site/Wound Site Clean and Dry Notify Provider of: Fever, Increased Pain, Swelling and Redness, Drainage, Nausea and/or Vomiting - Discharge Plan *PRESCRIPTION DRUG MONITORING PROGRAM REVIEWED*: No *COPY OF PRESCRIPTION DRUG MONITORING REPORT IN PATIENT ALFREDO: No Prescriptions/Med Rec: Acetaminophen/HYDROcodone [[place] 325-5 MG] 1 - 2 tab PO Q4H PRN #20 tablet PRN Reason: Pain Home Medications: Home Meds PNV95/Ferrous Fumarate/FA [ Tablet] 1 each PO DAILY 11/06/18 [History] Acetaminophen/HYDROcodone [Kountze 325-5 MG] 1 - 2 tab PO Q4H PRN #20 tablet 11/08 [Rx] Docusate Sodium [Colace] 100 mg PO Q12H PRN cap 11/08/18 [Rx] Ibuprofen [Motrin] 600 mg PO Q6H PRN tablet 11/08/18 [Rx] Patient Handouts: Steps to Quit Smoking Referrals: Jasmine Fallon MD [Primary Care Provider] - (2 weeks for post op check ) - Discharge Summary/Plan Comment DC Time >30 min.: No - Patient Data Vitals - Most Recent: Last Vital Signs Temp 37.0 C 11/07/18 22:14 Pulse 85 11/07/18 22:14 Resp 14 11/07/18 22:14 BP 123/88 11/07/18 22:14 Pulse Ox 100 11/07/18 22:14 Weight - Most Recent: 86.183 kg Lab Results - Last 24 hrs: Laboratory Results - last 24 hr 11/06/18 Range/Units 13:25 RPR Non-reactive (NONREACTIVE) Med Orders - Current: Current Medications Hydrocodone Bitart/Acetaminophen ([place] 325-5 Mg) 2 tab PO Q4H PRN PRN Reason: Pain Last Admin: 11/08/18 04:33 Dose: 1 tab Hydrocodone Bitart/Acetaminophen ([place] 325-5 Mg) 1 tab PO Q4H PRN PRN Reason: Pain Last Admin: 11/07/18 22:09 Dose: 1 tab Diphenhydramine HCl (Benadryl) 25 mg IVPUSH Q6H PRN PRN Reason: Itching or Nausea Docusate Sodium (Colace) 100 mg PO Q12H PRN PRN Reason: Constipation Emollient Ointment (Lansinoh Hpa) 0 gm TOP ASDIRECTED PRN PRN Reason: Sore Nipples Ephedrine Sulfate (Ephedrine Sulfate) 5 mg IVPUSH SEECOMMENT PRN PRN Reason: Other Sodium Chloride (Normal Saline) 1,000 mls @ 125 mls/hr IV ASDIRECTED HANNY Ibuprofen (Motrin) 600 mg PO Q6H PRN PRN Reason: mild pain or fever Last Admin: 11/07/18 20:34 Dose: 600 mg Naloxone HCl (Narcan) 0.1 mg IVPUSH SEECOMMENT PRN PRN Reason: Respiratory Depression Discontinued Medications Bupivacaine HCl (Marcaine 0.5%) Confirm Administered Dose 30 ml .ROUTE .[facility]-MED ONE Stop: 11/06/18 13:58 Last Admin: 11/06/18 13:48 Dose: 20 ml Cefazolin Sodium (Ancef) 2 gm .ROUTE .[facility] ONE Stop: 11/06/18 14:01 Citric Acid/Sodium Citrate (Bicitra Solution) Confirm Administered Dose 30 ml .ROUTE .[facility] ONE Stop: 11/06/18 13:37 Last Admin: 11/06/18 13:40 Dose: 30 ml Citric Acid/Sodium Citrate (Bicitra Solution) 30 ml PO ONETIME ONE Stop: 11/06/18 13:35 Last Admin: 11/07/18 16:27 Dose: Not Given Fentanyl (Sublimaze) 50 mcg IVPUSH ONETIME ONE Stop: 11/06/18 15:26 Last Admin: 11/06/18 15:20 Dose: 50 mcg Fentanyl (Sublimaze) 200 mcg .ROUTE .[facility] ONE Stop: 11/06/18 14:01 Lactated Ringer's (Ringers, Lactated) Confirm Administered Dose 1,000 mls @ as directed .ROUTE .[facility] ONE Stop: 11/06/18 13:36 Last Admin: 11/07/18 16:27 Dose: Not Given Lactated Ringer's (Ringers, Lactated) 1,000 mls @ 125 mls/hr IV ASDIRECTED [facility] Dextrose/Lactated Ringer's (Dextrose 5%-Lactated Ringers) 1,000 mls @ 125 mls/ hr IV ASDIRECTED [facility] Stop: 11/07/18 01:39 Last Admin: 11/06/18 20:42 Dose: 125 mls/hr Sodium Chloride (Normal Saline) 500 mls @ 500 mls/hr IV ONETIME ONE Stop: 11/07/18 02:44 Last Infusion: 11/07/18 03:17 Dose: Infused Ketorolac Tromethamine (Toradol) 30 mg IVPUSH Q6H [facility] Stop: 11/07/18 05:41 Last Admin: 11/07/18 06:14 Dose: 30 mg Ketorolac Tromethamine (Toradol) 30 mg .ROUTE .[facility] ONE Stop: 11/06/18 14:01 Lactated Ringer's (Ringers, Lactated) 1,000 ml .ROUTE .[facility]-MED ONE Stop: 11/06/18 14:01 Metoclopramide HCl (Reglan) Confirm Administered Dose 10 mg .ROUTE .[facility]-MED ONE Stop: 11/06/18 13:36 Last Admin: 11/06/18 13:45 Dose: 10 mg Metoclopramide HCl (Reglan) 10 mg IVPUSH ONETIME ONE Stop: 11/06/18 13:35 Last Admin: 11/07/18 16:26 Dose: Not Given Nalbuphine HCl (Nubain) 10 mg IVPUSH Q2H PRN PRN Reason: pain Oxytocin (Pitocin) 10 unit .ROUTE .STK-MED ONE Stop: 11/06/18 14:01 Propofol (Diprivan 20 Ml) 200 mg .ROUTE .STK-MED ONE Stop: 11/06/18 14:01 Sodium Chloride (Saline Flush) 10 ml FLUSH ASDIRECTED PRN PRN Reason: Keep Vein Open Succinylcholine Chloride (Succinylcholine In Ns Pf) 100 mg .ROUTE .STK-MED ONE Stop: 11/06/18 14:01
[2018-11-08] MEDS ORDERED: Diphtheria,Pertussis(Acell),Tetanus Vaccine 0.5 ML Syringe IM ONE (10:42)
[2018-11-08 11:20] VITALS: BP 130/71
== END 2018-11-08 11:00 | disposition home or self-care (01) | DRG 787 ==
LOC: JD.OBCHECK 13:06 → JD.OB 13:26 → JD.OBCHECK 13:33 → JD.OB 13:34
PROVIDERS: ADMIT Obstetrics & Gynecology; ATTEND Obstetrics & Gynecology
PROC: 10D00Z1 Extraction of Products of Conception, Low, Open Approach (ICD-10-PCS; principal; 2018-11-06)
PROC: 3E0234Z Introduction of Serum, Toxoid and Vaccine into Muscle, Percutaneous Approach (ICD-10-PCS; 2018-11-06)
DX: O45.92 Premature separation of placenta, unspecified, second trimester (principal); O99.324 Drug use complicating childbirth; Z3A.26 26 weeks gestation of pregnancy; Z37.0 Single live birth; F15.10 Other stimulant abuse, uncomplicated; F12.10 Cannabis abuse, uncomplicated; O32.1XX0 Maternal care for breech presentation, not applicable or unspecified; O99.334 Smoking (tobacco) complicating childbirth; F17.210 Nicotine dependence, cigarettes, uncomplicated; O99.344 Other mental disorders complicating childbirth; F41.9 Anxiety disorder, unspecified; F32.9 Major depressive disorder, single episode, unspecified; Z87.442 Personal history of urinary calculi; Z23 Encounter for immunization
CPT/HCPCS: 36415; 80053; 80306; 82962; 85025; 85384; 85610; 85730; 86592; 86850; 86900; 86901; 90471; 90700; A9270-GY; J0330; J0690; J1885; J2590; J2704; J2765; J3010; J3490; J7040; J7042; J7120

== ENCOUNTER 2020-10-25 11:38 | Emergency (ER) | payer MEDICAID ==
[2020-10-25 11:53] VITALS: BP 131/87; PULSE 94
--- NOTE | 2020-10-25 12:12 | EDM.PDOC ---
ED HPI GENERAL MEDICAL PROBLEM - General Chief Complaint: Respiratory Problem Stated Complaint: FEVER/SHAKES/SORE THROAT Time Seen by Provider: 10/25/20 11:46 Source of Information: Reports: Patient, RN Notes Reviewed History Limitations: Reports: No Limitations - History of Present Illness INITIAL COMMENTS - FREE TEXT/NARRATIVE: Patient is a 30-year-old female who presents to the ER for her fever/aches/sore throat. Patient notes that she developed a cough, sore throat and chills last night. She denies any nausea/vomiting/diarrhea, or shortness of breath. Patient states she has not had any close contact with any other known sick individuals. She states she could have been around some sick children but no one that is been known to be sick with COVID-19 or any other illness. She states that she does not have a thermometer at home, so she could not take her temperature, she states she only felt feverish. She states that her whole throat just feels sore and is very difficult to swallow anything at all. She is a smoker, and became alarmed this morning as she could not taste or smell the cigarette smoke. Patient states that she does have a significant other in the house with her, who is also sick with like symptoms only he was up with nausea and vomiting all night. She notes that she coughed all night long and did not get much sleep. She is not taking any [id number]-paoiish medications for this. Does not have a primary care provider, and she denies any past medical history. Patient does smoke marijuana on a daily basis. Patient denies any chance of for today's purposes. - Related Data Allergies Allergy/AdvReac Type Severity Reaction Status Date / Time antibiotic. Allergy Hives Uncoded 10/25/20 11:53 Home Meds: Home Meds Codeine/Promethazine [Phenergan with Codeine] 5 ml PO Q4HR PRN #120 ml 10/25/20 [Rx] Past Medical History - Past Health History Medical/Surgical History: Denies Medical/Surgical History Other HEENT History: Wears contacts. 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) - Infectious Disease History Infectious Disease History: Reports: Chicken Pox - Past Surgical History Female Surgical History: Reports: Other (See Below) Social & Family History - Family History Family Medical History: No Pertinent Family History - Tobacco Use Tobacco Use Status *Q: Current Every Day Tobacco User Years of Tobacco use: 18 Packs/Tins Daily: 1 - Caffeine Use Caffeine Use: Reports: Soda - Recreational Drug Use Recreational Drug Use: Yes Drug Use in Last 12 Months: Yes Recreational Drug Type: Reports: Marijuana/Hashish, Methamphetamine Recreational Drug Use Frequency: Not Used In Over 6 Months ED ROS GENERAL - Review of Systems Review Of Systems: Comprehensive ROS is negative, except as noted in HPI. ED EXAM, GENERAL - Physical Exam Exam: See Below Exam Limited By: No Limitations General Appearance: Alert, WD/WN, No Apparent Distress Eye Exam: Bilateral Eye: EOMI, Normal Inspection, PERRL Throat/Mouth: Normal Inspection, Normal Lips, Normal Teeth, Normal Gums, Normal Oropharynx, Normal Voice, No Airway Compromise Head: Atraumatic, Normocephalic Neck: Normal Inspection, Supple, Non-Tender, Full Range of Motion Respiratory/Chest: No Respiratory Distress, Lungs Clear, Normal Breath Sounds, No Accessory Muscle Use, Chest Non-Tender Cardiovascular: Normal Peripheral Pulses, Regular Rate, Rhythm, No Edema Peripheral Pulses: 2+: Radial (L), Radial (R) GI/Abdominal: Normal Bowel Sounds, Soft, Non-Tender, No Distention, No Mass Extremities: Normal Inspection, Normal Capillary Refill Neurological: Alert, Oriented, Normal Cognition, No Motor/Sensory Deficits Psychiatric: Normal Affect, Normal Mood Skin Exam: Warm, Dry, Intact, Normal Color, No Rash Course - Vital Signs Last Recorded V/S: Last Vital Signs Temp 97 F 10/25/20 11:48 Pulse 94 10/25/20 11:48 Resp 12 10/25/20 11:48 BP 131/87 10/25/20 11:48 Pulse Ox 100 10/25/20 11:48 - Orders/Labs/Meds Orders: Active Orders 24 hr Category Date Time Status Chest 1V Frontal [CR] Stat Exams 10/25/20 12:04 Taken Labs: Laboratory Tests 10/25/20 10/25/20 Range/Units 11:56 11:56 Influenza Type A RNA Negative (NEGATIVE) Influenza Type B RNA Negative (NEGATIVE) SARS-CoV-2 RNA (MONI) Negative (NEGATIVE) Group A Strep (PCR) Not detected (NOT DETECT) - Re-Assessments/Exams Free Text/Narrative Re-Assessment/Exam: 10/25/20 12:10 Patient presents to the ER for her viral illness. We will go ahead and get a Covid/flu swab, and a strep swab for initial management, we will obtain a baseline chest x-ray as well. The patient was wondering about the possibility of getting a referral to ER PHYSICIAN for a tubal ligation. I did tell her that I would be able to give her the number for the clinic, she would be able to set up her appointment on her own for evaluation and further management regarding her tubal ligation. Patient verbalized understanding. 10/25/20 13:20 The patient's Covid screen did come back negative, along with a strep screen. Since her cough seems to be the main concern of this patient, we will go ahead and give her some cough medication and have her follow some general conservative recommendations at home. This appears to be just a viral upper respiratory illness. Patient's chest x-ray was reviewed by myself and Dr. Hernandez, and appears to have no acute consolidative processes like pneumonia or bronchitis. Departure - Departure Time of Disposition: 13:27 Disposition: Home, Self-Care 01 Condition: Good Clinical Impression: Viral URI with cough - Discharge Information *PRESCRIPTION DRUG MONITORING PROGRAM REVIEWED*: Yes *COPY OF PRESCRIPTION DRUG MONITORING REPORT IN PATIENT ALFREDO: No Prescriptions: Codeine/Promethazine [Phenergan with Codeine] 5 ml PO Q4HR PRN #120 ml PRN Reason: Cough Instructions: Upper Respiratory Infection, Adult, [id number] Referrals: PCP,None [Primary Care Provider] - Forms: ED Department Discharge Additional Instructions: You have been evaluated in the ED today for your cold like symptoms. This is likely a viral illness in etiology. Your chest x-ray showed no acute findings like pneumonia or bronchitis. Your COVID-19 swab and strep swab were both negative at today's visit. Please increase your fluid intake. Get plenty of rest as well. You should feel better in a few days. As with any illness, please try to limit your exposure to others to help mitigate the spread of germs. Please also remember to wash your hands after you cough/sneeze. Please try to limit touching your face, and then touching other surfaces. Recommend that you take some [id number] nasal decongestants, cough/cold remedies to combat this. You may take 500mg Tylenol (acetaminophen) or 600mg Advil/Motrin (ibuprofen) every 6 hours as needed for further pain/fever relief. Do not exceed 4000 mg Tylenol or 3200 mg ibuprofen in a 24-hour time span. If you have high blood pressure, medications like Coricidin would be adequate to use. You were given a strong cough medication, do not drive while taking this medication. You will need to take 5 to 10 mL every 4 hours as needed for ongoing cough. This medication was electronically sent to the [facility] located on [address]. If your symptoms are not better in one week's time recommend that you follow up in a clinic or your primary care provider. Our [facility] clinic number is [phone], the [place] clinic is [phone]. Any family practice provider would be able to provide you with the services. Regarding your request for possible tubal ligation, you may call either of the above clinic numbers and request appointment with ER PHYSICIAN for ongoing management. Please return to the ED if your symptoms change or worsen. Sepsis Event Note (ED) - Evaluation Sepsis Screening Result: No Definite Risk - Focused Exam Vital Signs: Vital Signs Temp Pulse Resp BP Pulse Ox 10/25/20 11:48 97 F 94 12 131/87 100 - My Orders Last 24 Hours: My Active Orders 10/25/20 12:04 Chest 1V Frontal [CR] Stat - Assessment/Plan Last 24 Hours: My Active Orders 10/25/20 12:04 Chest 1V Frontal [CR] Stat
[2020-10-25 12:49] LABS: CORONAVIRUS COVID-19 NAA NEGATIVE (NEGATIVE)
--- NOTE | 2020-10-25 13:31 | CR ---
Chest: Portable view of the chest was obtained. Comparison: No prior chest imaging is available. Heart size and mediastinum are normal. Lungs are clear with no acute parenchymal change. Bony structures are unremarkable. Impression: 1. Nothing acute is seen on portable chest x-ray. Diagnostic code #1
== END 2020-10-25 13:30 | disposition home or self-care (01) ==
LOC: JD.ED 11:38
DX: J06.9 Acute upper respiratory infection, unspecified (principal); Z88.1 Allergy status to other antibiotic agents; Z72.0 Tobacco use; Z20.822 Contact with and (suspected) exposure to COVID-19
CPT/HCPCS: 0240U; 71045; 87651; 99283

== ENCOUNTER 2023-04-11 14:55 | Emergency (ER) | payer MEDICAID ==
[2023-04-11] MEDS ORDERED: Acetaminophen 325 MG Tab PO ONE (15:37)
[2023-04-11 16:04] LABS: BASOPHILS ABSOLUTE AUTO 0.1 K/mm3 (0.0-0.2); BASOPHILS PERCENT AUTO 0.6 % (0.0-1.0); EOSINOPHILS ABSOLUTE AUTO 0.1 K/mm3 (0.0-0.4); HEMATOCRIT 42.2 % (37.0-47.0); HEMOGLOBIN 13.9 gm/dl (12.0-16.0); IMMATURE GRAN ABSOLUTE AUTO 0.03 K/mm3 (0.00-0.05); IMMATURE GRAN PERCENT AUTO 0.3 % (0.0-0.4); LYMPHOCYTES ABSOLUTE AUTO 2.6 K/mm3 (1.0-4.8); LYMPHOCYTES PERCENT AUTO 24.6 % (24.0-44.0); MEAN CORPUSCULAR HEMOGLOBIN 29.3 pg (28.0-32.0); MEAN CORPUSCULAR HGB CONC 32.9 g/dl (32.0-36.0); MONOCYTES PERCENT AUTO 9.8 % (0.0-8.0); NEUTROPHILS ABSOLUTE AUTO 6.7 K/mm3 (1.8-7.7); NEUTROPHILS PERCENT AUTO 63.7 % (41.0-71.0); PLATELET COUNT,PLT 317 K/mm3 (150-400); RED BLOOD CELL COUNT 4.74 M/mm3 (4.10-5.30)
[2023-04-11 16:14] LABS: A/G RATIO 1.1 (1-2); ALBUMIN 3.7 g/dl (3.4-5.0); ANION GAP 12.8 (5-15); BILIRUBIN TOTAL 0.3 mg/dL (0.2-1.0); BUN/CREATININE RATIO 11.1 (14-18); CREATININE 0.9 mg/dL (0.55-1.02); EST CRCL DRUG DOSING (CG) 74.23 mL/min; POTASSIUM,K 3.8 mEq/L (3.5-5.1)
[2023-04-11] MEDS ORDERED: Acetaminophen/HYDROcodone 325-5 MG Tab PO ONE (16:23)
[2023-04-11 17:30] VITALS: BP 132/89; PULSE 91
== END 2023-04-11 17:30 | disposition home or self-care (01) ==
LOC: JD.ED 14:55
DX: S43.102A Unspecified dislocation of left acromioclavicular joint, initial encounter (principal); F17.210 Nicotine dependence, cigarettes, uncomplicated; Z88.1 Allergy status to other antibiotic agents; W01.0XXA Fall on same level from slipping, tripping and stumbling without subsequent striking against object, initial encounter
CPT/HCPCS: 36415; 73030; 80053; 84703; 85025; 99283; A9270